=== PATIENT | female | born 1985 | race Caucasian/White ===

== ENCOUNTER → 2018-02-28 | Outpatient (CLI) | payer SELFPAY ==
[~2018-02-28] MED LIST: ONDA-42 SL; PNT40TEC PO
--- NOTE | 2018-02-28 14:14 | Diagnostic Imaging Report ---
INDICATION: Lump in the right posterior neck, increasing in size over the last several years. FINDINGS: Sonographic interrogation of the area of lump in the right posterior neck was performed. There is a nonspecific mixed echogenicity solid-appearing nodule just below the skin surface in the right posterior neck at the area of palpable abnormality. This measures 10 mm x 10 mm x 7 mm. No internal vascularity is identified. Exact etiology is indeterminate. IMPRESSION: Nonspecific solid nodule at the area of palpable abnormality in the posterior right neck. This does not have features of a benign lymph node. Excisional biopsy may be indicated if this is increasing in size. Dictated by: Dictated on workstation # [id number]
== END ==
LOC: RAD 13:19
PROVIDERS: ATTEND Nurse Practitioner Family
DX: R59.0 Localized enlarged lymph nodes (principal)
CPT/HCPCS: 76536